=== PATIENT | female | born 1955 | race Caucasian/White ===

== ENCOUNTER 2017-07-20 10:58 | Inpatient (IN) | payer BC, OTHER ==
[2017-07-20] MEDS ORDERED: ASPIRIN 81 MG CHEWABLE TABLETS PO ONE (11:16)
[2017-07-20] MEDS ORDERED: METOPROLOL TARTRATE 5 MG/5 ML VIAL IVPUSH ONE (11:18)
--- NOTE | 2017-07-20 11:18 | PDOC ---
History of Present Illness - History of Present Illness Initial Comments: 07/20/17 11:37 The patient is a 61 year old female, with a significant past medical history of , who presents to the emergency department with chest pain since this morning. Patient reports having a cold and dry cough. She says she took mucinex but it did not help her symptoms. Saw her PCP, Dr. Misbah Domínguez, and he referred her to the ED s/p abnormal EKG. Patient states this is the first time going to a doctor in a while. She denies recent fevers, chills, headache or dizziness. She denies recent nausea, vomit, diarrhea or constipation. She denies recent dysuria, frequency, urgency or hematuria. She denies recent shortness of breath. Allergies: NKA Past surgical history: None reported. Social history: Nonsmoker. Denies EtOH use and recreational drug use. FMHx: Mother at 85 from heart failure. Father from stroke. Primary Care Physician: Adam Domínguez <Nikki Rouse - Last Filed: 07/20/17 13:33> <Lucrecia Washburn - Last Filed: 07/20/17 13:41> - General Chief Complaint: Chest Pain Stated Complaint: ABNORMAL EKG Time Seen by Provider: 07/20/17 11:07 Past History <Nikki Rouse - Last Filed: 07/20/17 13:33> - Past Medical History Psychiatric Problems: Yes (ANXIETY) - Suicide/Smoking/Psychosocial Hx Smoking History: Never smoked Information on smoking cessation initiated: No Hx Alcohol Use: No Drug/Substance Use Hx: No Substance Use Type: None <Lucrecia Washburn - Last Filed: 07/20/17 13:41> - Past Medical History Allergies/Adverse Reactions: Allergies Allergy/AdvReac Type Severity Reaction Status Date / Time No Known Allergies Allergy Verified 07/20/17 11:04 Review of Systems - Review of Systems Comments:: 07/20/17 11:37 GENERAL/CONSTITUTIONAL: + malaise +diaphoresis. +dry cough. No fever or chills. HEAD, EYES, EARS, NOSE AND THROAT: No change in vision. No ear pain or discharge. No sore throat. CARDIOVASCULAR: +chest pain. No shortness of breath. RESPIRATORY: No cough, wheezing, or hemoptysis. GASTROINTESTINAL: No nausea, vomiting, diarrhea or constipation. GENITOURINARY: No dysuria, frequency, or change in urination. MUSCULOSKELETAL: No joint or muscle swelling or pain. No neck or back pain. SKIN: No rash NEUROLOGIC: No headache, vertigo, loss of consciousness, or change in strength/ sensation. ENDOCRINE: No increased thirst. No abnormal weight change. HEMATOLOGIC/LYMPHATIC: No anemia, easy bleeding, or history of blood clots. ALLERGIC/IMMUNOLOGIC: No hives or skin allergy. <Nikki Rouse - Last Filed: 07/20/17 13:33> *Physical Exam - Vital Signs Last Vital Signs Temp Pulse Resp BP Pulse Ox 97.6 F 125 H 22 146/105 94 L 07/20/17 11:07/20/17 11:07/20/17 11:07/20/17 11:07/20/17 11:01 - Physical Exam Comments: 07/20/17 11:37 GENERAL: Awake, alert, and fully oriented, in no acute distress HEAD: No signs of trauma EYES: PERRLA, EOMI, sclera anicteric, conjunctiva clear ENT: Auricles normal inspection, hearing grossly normal, nares patent, oropharynx clear without exudates. Moist mucosa NECK: Normal ROM, supple, no lymphadenopathy, JVD, or masses LUNGS: +Crackles at bases of lungs. Lungs otherwise clear. Breath sounds equal, clear to auscultation bilaterally. No wheezes. HEART: +Rate irregularly irregular. No murmurs, rubs or gallops ABDOMEN: Soft, nontender, normoactive bowel sounds. No guarding, no rebound. No masses EXTREMITIES: Normal range of motion, no edema. No clubbing or cyanosis. No cords, erythema, or tenderness NEUROLOGICAL: Cranial nerves II through XII grossly intact. Normal speech, normal gait SKIN: Warm, Dry, normal turgor, no rashes or lesions noted. <Nikki Rouse - Last Filed: 07/20/17 13:33> - Vital Signs Last Vital Signs Temp Pulse Resp BP Pulse Ox 97.6 F 125 H 22 146/105 94 L 07/20/17 11:01 07/20/17 11:07/20/17 11:01 07/20/17 11:01 07/20/17 11:01 <Lucrecia Washburn - Last Filed: 07/20/17 13:41> ED Treatment Course - LABORATORY CBC & Chemistry Diagram: 07/20/17 11:30 07/20/17 11:30 - Additional Consults Time Called: 01:08 (called Dr. Aiken x2. Dr. Domínguez prefers Dr. Calderón for consult. Called Dr. Calderón @ 1:09 Called 2nd time @1:20) Consult/PCP: Cardiology - Dr. Calderón <Nikki Rouse - Last Filed: 07/20/17 13:33> - LABORATORY CBC & Chemistry Diagram: 07/20/17 11:30 07/20/17 11:30 <Lucrecia Washburn - Last Filed: 07/20/17 13:41> Medical Decision Making - Medical Decision Making 07/20/17 12:23 Pt is extremely diaphoretic; nasal cannula pt has O2sat 92%; on NRB she is 93% O2sat. Pt placed on BiPAP, as she has bilateral pneumonia on portable CXR. Pt has a WBC of 11. EKG is afib and LBBB 07/20/17 12:35 First troponin within normal limits. CPK still pending. Pt feeling better with BIPAP Zithromax and zosyn ordered for the bilateral pneumonia. 07/20/17 12:49 07/20/17 12:48 CPK 166; pt vastly improved with BiPAP. Awaiting cardiology division supervisor to accept pt to telemetry 07/20/17 13:38 Dr Domínguez is requesting Dr. Lepe for cardiology 07/20/17 13:41 Dr Lepe is aware of the patient. Heparin drip will be started <Lucrecia Washburn - Last Filed: 07/20/17 13:41> *DC/Admit/Observation/Transfer - Attestations Scribe Attestion: 07/20/17 11:38 Documentation prepared by Nikki Rouse, acting as medical record consultant for Lucrecia Washburn MD. <Nikki Rouse - Last Filed: 07/20/17 13:33> - Discharge Dispostion Admit: Yes <Lucrecia Washburn - Last Filed: 07/20/17 13:41> Diagnosis at time of Disposition: Atrial fibrillation, Bilateral pneumonia - Discharge Dispostion Condition at time of disposition: Guarded
[2017-07-20] MEDS ORDERED: dilTIAZem HCL 50 MG/10 ML - 10 ML VIAL IVPUSH ONE (11:27)
[2017-07-20] MEDS ORDERED: SODIUM CHLORIDE 0.9% 500 ML INFUS.BAG IV ONE (11:27)
[2017-07-20] MEDS ORDERED: dilTIAZem HCL 125 MG/25 ML - 25 ML VIAL ONE (11:35)
[2017-07-20] MEDS ORDERED: ASPIRIN 81 MG CHEWABLE TABLETS ONE (11:35)
[2017-07-20] MEDS ORDERED: LORazepam 1 MG TABLET PO ONE (11:40)
[2017-07-20] MEDS ORDERED: LORazepam 0.5 MG TABLET ONE (11:44)
[2017-07-20 11:45] LABS: BASOPHIL 0.7 % (0-2.0); EOSINOPHIL 0.4 % (0-4.5); MCH 30.4 pg (25.7-33.7); MEAN PLT VOLUME 9.5 fl (7.5-11.1); NEUTROPHILS 79.9 % (42.8-82.8); PLATELET COUNT 335 K/MM3 (134-434)
[2017-07-20 11:58] LABS: INR 1.18 (0.82-1.09)
[2017-07-20 12:00] LABS: ALBUMIN 3.6 g/dl (3.4-5.0); ANION GAP 15 (8-16); BILIRUBIN,TOTAL 0.8 mg/dL (0.2-1.0); CALCIUM 9.1 mg/dL (8.5-10.1); CO2 16 mmol/L (21-32); CREATININE 0.7 mg/dL (0.55-1.02); GLUCOSE,RANDOM 181 mg/dL (74-106); SGOT/AST 25 U/L (15-37); SGPT/ALT 33 U/L (12-78); TOT PROT 7.1 g/dl (6.4-8.2)
[2017-07-20 12:02] LABS: ALK PHOS 122 U/L (45-117); CPK 176 IU/L (26-192); TROPONIN I 0.05 ng/ml (0.00-0.05)
[2017-07-20] MEDS ORDERED: PIPERACILLIN/TAZOB 3.375 GM 3.375 GM in DEXTROSE 5%-WATER - 50 ML IVPB ONE (12:13)
[2017-07-20] MEDS ORDERED: AZITHROMYCIN IVPB 250 ML IVPB ONE (12:18)
[2017-07-20] MEDS ORDERED: AZITHROMYCIN IVPB 500 MG in DEXTROSE 5%-WATER - 250 ML IVPB ONE (12:18)
[2017-07-20] MEDS ORDERED: dilTIAZem HCL 60 MG TABLET (FP) PO ONE (12:39)
--- NOTE | 2017-07-20 13:20 | HP ---
Admitting History and Physical - Admission Chief Complaint: chest tightness. came in c/o sob at rest cough x 1 wk History of Present Illness: pt never seen docters in yrs History Source: Patient, Family Member Limitations to Obtaining History: No Limitations - Past Surgical History Past Surgical History: Yes: None - Smoking History Smoking history: Never smoked Have you smoked in the past 12 months: No - Alcohol/Substance Use Hx Alcohol Use: No - Social History Usual Living Arrangement: Yes: Alone ADL: Independent History of Recent Travel: No Home Medications - Allergies Allergies/Adverse Reactions: Allergies Allergy/AdvReac Type Severity Reaction Status Date / Time No Known Allergies Allergy Verified 07/20/17 11:04 Family Disease History - Family Disease History Family History: Unremarkable Review of Systems - Review of Systems Constitutional: reports: Other (sob coughf) Eyes: reports: No Symptoms HENT: reports: No Symptoms Neck: reports: No Symptoms Cardiovascular: reports: Chest Pain, Shortness of Breath Respiratory: reports: SOB Gastrointestinal: reports: No Symptoms Genitourinary: reports: No Symptoms Breasts: reports: No Symptoms Reported Musculoskeletal: reports: No Symptoms Integumentary: reports: No Symptoms Neurological: reports: No Symptoms Endocrine: reports: No Symptoms Hematology/Lymphatic: reports: No Symptoms Psychiatric: reports: No Symptoms, Anxiety Physical Examination Vital Signs: Vital Signs Temperature 97.6 F 07/20/17 11:01 Pulse Rate 98 H 07/20/17 12:35 Respiratory Rate 28 H 07/20/17 12:35 Blood Pressure 144/98 07/20/17 12:35 O2 Sat by Pulse Oximetry (%) 99 07/20/17 12:35 Constitutional: Yes: Well Nourished Eyes: Yes: WNL HENT: Yes: WNL Neck: Yes: WNL Cardiovascular: Yes: Pulse Irregular Respiratory: Yes: Diminished, Rhonchi, SOB Gastrointestinal: Yes: WNL ...Rectal Exam: Yes: Deferred Renal/: Yes: WNL Breast(s): Yes: WNL Musculoskeletal: Yes: WNL Extremities: Yes: WNL Edema: No Integumentary: Yes: WNL Neurological: Yes: WNL ...Motor Strength: WNL Psychiatric: Yes: Agitated Labs: CBC, BMP 07/20/17 11:30 07/20/17 11:30 Problem List - Problems (1) Anxiety Code(s): F41.9 - ANXIETY DISORDER, UNSPECIFIED Assessment/Plan card consult id consult luvonox bid o 2 jalen q 8 x 2 echo in am aic in am tsh now 1 liter fl restrict for na 130 rocefin 1 gm iv daily zithromax iv daily telemetry f/u lab in am and cultures cardiazam po 5 mg daily
[2017-07-20] MEDS ORDERED: dilTIAZem HCL 30 MG TABLET (FP) PO ONE (13:36)
[2017-07-20] MEDS ORDERED: AZITHROMYCIN IVPB 1,000 MG in DEXTROSE 5%-WATER - 250 ML IVPB ONE (13:36)
[2017-07-20] MEDS ORDERED: HEPARIN NA (PORCINE) 5,000 UNITS/ML 1ML VIAL IVPUSH PRN (13:39)
[2017-07-20] MEDS ORDERED: HEPARIN NA (PORCINE) 5,000 UNITS/ML 1ML VIAL IVPUSH ONE (13:39)
[2017-07-20] MEDS ORDERED: HEPARIN INFUSION - 500 ML IVPB SCH (13:45)
[2017-07-20] MEDS ORDERED: HEPARIN INFUSION - 500 ML IVPB ONE (13:50)
[2017-07-20] MEDS ORDERED: HEPARIN NA (PORCINE) 5,000 UNITS/ML 1ML VIAL ONE (13:50)
--- NOTE | 2017-07-20 14:08 | CON.PULM ---
Consult Consult Specialty:: PULMONARY Referred by:: MONY Reason for Consultation:: B/L PNEUMONIA - History of Present Illness Chief Complaint: COUGH/SOB/FEVER History of Present Illness: The patient is a 61 year old female,never smoker, without a significant PMH , who presents to ER via Dr. Adam Domínguez's office where she was complaining of sob,cough,fever,chills and palps . Patient reports having a cold and dry cough. She says she took mucinex but it did not help her symptoms. while at MD's office she was found to be in rapid atrial fibrillation and to have bilateral infiltrates. She denies recent fevers, chills, headache or dizziness. She denies recent nausea, vomit, diarrhea or constipation. She denies recent dysuria, frequency, urgency or hematuria. 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 She does not take any medication and has not seen an MD in years. She did not get a flu vaccine . 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 Cardio/Vascular: Yes: AFIB Pulmonary: Yes: Pneumonia Gastrointestinal: No: Ascites Hepatobiliary: No: Cirrhosis Renal/: No: Renal Failure Reproductive: Yes: Postmenopausal ...: No Heme/Onc: No: Anemia Psych: No: Addictions - Past Surgical History Past Surgical History: Yes: None - Alcohol/Substance Use Hx Alcohol Use: No History of Substance Use: reports: None - Smoking History Smoking history: Never smoked Have you smoked in the past 12 months: No - Social History ADL: Independent History of Recent Travel: No Home Medications - Allergies Allergies/Adverse Reactions: Allergies Allergy/AdvReac Type Severity Reaction Status Date / Time No Known Allergies Allergy Verified 07/20/17 11:04 Family Disease History - Family Disease History Family History: Unremarkable Review of Systems - Review of Systems Constitutional: reports: Chills, Fever, Lethargy, Loss of Appetite HENT: denies: Difficult Swallowing Neck: denies: Decreased ROM Cardiovascular: reports: Chest Pain, Palpitations, Shortness of Breath Respiratory: reports: Cough, Exercise Intolerance, SOB, SOB on Exertion, Wheezing. denies: Hemoptysis Gastrointestinal: reports: No Symptoms Genitourinary: reports: No Symptoms Breasts: reports: No Symptoms Reported Physical Exam Vital Sings: Vital Signs Temperature 97.6 F 07/20/17 11:01 Pulse Rate 98 H 07/20/17 12:35 Respiratory Rate 28 H 07/20/17 12:35 Blood Pressure 144/98 07/20/17 12:35 O2 Sat by Pulse Oximetry (%) 99 07/20/17 12:35 Constitutional: Yes: Moderate Distress, Pallor, Thin Eyes: Yes: Conjunctiva Clear HENT: Yes: Atraumatic Neck: Yes: Supple Cardiovascular: Yes: Pulse Irregular, S1, S2 Respiratory: Yes: Rales (bilaterally), Rhonchi Gastrointestinal: Yes: Soft Edema: No Neurological: Yes: Alert Labs: CBC, BMP 07/20/17 11:30 07/20/17 11:30 rest reviewed Imaging - Results Chest X-ray: Report Reviewed, Image Reviewed EKG: Report Reviewed, Image Reviewed Problem List - Problems (1) Atrial fibrillation Code(s): I48.91 - UNSPECIFIED ATRIAL FIBRILLATION (2) Bilateral pneumonia Code(s): J18.9 - PNEUMONIA, UNSPECIFIED ORGANISM (3) Respiratory failure Code(s): J96.90 - RESPIRATORY FAILURE, UNSP, UNSP W HYPOXIA OR HYPERCAPNIA Assessment/Plan ADMIT TO ICU NIPPV TO KEEP SPO2 GREATER THAN 90% PANCULTURE/BLOOD/URINE/SPUTUM/URINARY ANTIGENS/NASAL SWAB FOR INFLUENZA COVER FOR COMMUNITY RESPIRATORY PATHOGENS INCLUDING INFLUENZA CHECK ABG RATE CONTROL/IV FLUIDS/ANTIPYRETICS CARDIO EVAL PER PMD HAVE SPOKEN TO DR NOBLE/PMD AND FAMILY Kiley RUBIO MD
[2017-07-20 14:15] LABS: ARTERIAL BLD GAS O2 SATURATION 97.6 % (90-98.9); ARTERIAL BLOOD GAS BASE EXCESS -9.1 meq/l (-2-2)
[2017-07-20 14:16] LABS: ALLENS TEST POSITIVE; ART PUNCT SITE LEFT RADIAL; ARTERIAL BLOOD GAS HCO3 16.1 meq/L (22-26); LPM/O2% 100%; MECH. VENT. BIPAP; PT. ON O2? YES; TYPE OF O2 BIPAP; VENT RATE 14
[2017-07-20 14:16] LABS: THYROID STIMULATING HORMONE 1.46 uIU/ml (0.358-3.74)
[2017-07-20] MEDS ORDERED: OSELTAMIVIR PHOSPHATE 75 MG CAPSULE PO ONE (14:30)
[2017-07-20] MEDS ORDERED: CEFTRIAXONE 1 G/50 ML PREMIX 50 ML IVPB SCH (14:30)
[2017-07-20] MEDS ORDERED: FUROSEMIDE 40 MG/4 ML INJECTABLE VIAL IVPUSH ONE ×2 (15:36→23:00)
[2017-07-20 15:54] VITALS: BMI 24.3
--- NOTE | 2017-07-20 16:31 | CONSULT ---
Consultation: CONSULT REQUEST: INFECTIOUS DISEASE HISTORY OF PRESENT ILLNESS: Ms. Machado is a 61yo F with no PMHx on no home medications who presented to the ER from Dr. Domínguez's office with complaints of SOB and cough. Pt states that about 2 weeks ago the patient started feeling cold type symptoms such as runny nose, watery eyes, sneezing. 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 At the same time the patient was complaining of nonproductive cough and gradual onset SOB. She had been experiencing intermittent fevers/chills at the time. She took mucinex which did not relieve her symptoms. She went to Dr. Domínguez's office where she was found to be in rapid Afib, and was transferred to the ER. In the ER the patient was afebrile, tachycardic (120s) in Afib, with O2 in the low 90s on NC. She was switched to non-rebreather and later placed on BiPAP. She was given Cardizem, Lopressor, and Heparin drip. CXR showed bilateral congestion with possible B/L infiltrates. She was given dose of Zithromax 500mg IVPB + Tamiflu 75mg x1. Flu swab was negative. In the ICU, she was hypothermic (97.2), still tachycaric, now in sinus rhythm. She was given Lasix 40mg IV x1 for the pulmonary congestion and is receiving Zosyn 3.375gm x1 Currently, the patient does not feel well. She endorses SOB, dry cough, but denies nausea/vomiting/diarrhea/frequency/urgency. She denies orthopnea or PND. Home Medication List Medication Instructions Recorded Confirmed Type NK [No Known Home Medication] 07/20/17 07/20/17 History REVIEW OF SYSTEMS: CONSTITUTIONAL: Absent: fever, chills, diaphoresis, generalized weakness, malaise, loss of appetite, weight change HEENT: Absent: rhinorrhea, nasal congestion, throat pain, throat swelling, difficulty swallowing, mouth swelling, ear pain, eye pain, visual changes CARDIOVASCULAR: Absent: chest pain, syncope, palpitations, irregular heart rate, lightheadedness , peripheral edema RESPIRATORY: Absent: cough, shortness of breath, dyspnea with exertion, orthopnea, wheezing, stridor, hemoptysis Present: cough, SOB, dyspnea with exertion GASTROINTESTINAL: Absent: abdominal pain, abdominal distension, nausea, vomiting, diarrhea, constipation, melena, hematochezia GENITOURINARY: Absent: dysuria, frequency, urgency, hesitancy, hematuria, flank pain, genital pain MUSCULOSKELETAL: Absent: myalgia, arthralgia, joint swelling, back pain, neck pain SKIN: Absent: rash, itching, pallor HEMATOLOGIC/IMMUNOLOGIC: Absent: easy bleeding, easy bruising, lymphadenopathy, frequent infections ENDOCRINE: Absent: unexplained weight gain, unexplained weight loss, heat intolerance, cold intolerance NEUROLOGIC: Absent: headache, focal weakness or paresthesias, dizziness, unsteady gait, seizure, mental status changes, bladder or bowel incontinence PSYCHIATRIC: Absent: anxiety, depression, suicidal or homicidal ideation, hallucinations. PHYSICAL EXAMINATION Vital Signs Temperature 97.2 F L 07/20/17 15:15 Pulse Rate 92 H 07/20/17 15:15 Respiratory Rate 28 H 07/20/17 15:15 Blood Pressure 134/88 07/20/17 15:15 O2 Sat by Pulse Oximetry (%) 99 07/20/17 15:15 GEN: AAOx3, on BiPAP, using accessory muscles HEENT: PERRLA, EOMi, no visible JVD CV: S1, S2, tachycardic rate, regular rhythm LUNG: Anterior breath sounds are coarse bilaterally ABD: Soft, NT, ND MSK: Cool, clammy extremities without pitting edema in extremities Microbiology 07/20/17 15:05 Nasopharyngeal Swab Influenza Types A,B Antigen (YOHANA) - Final --> NEGATIVE 07/20/17 15:05 Nasopharyngeal Swab - Final Selected Entries 07/20/17 15:15 Temperature 97.2 F L Pulse Rate [ 92 H Right] Respiratory 24 Rate Laboratory Tests 07/20/17 07/20/17 07/20/17 11:30 11:30 14:05 WBC 11.0 H Neutrophils % 79.9 ABG pH 7.30 L ABG pCO2 at Pt Temp 34.1 L Creatinine 0.7 Active Medications Generic Name Dose Route Start Last Admin Trade Name Freq PRN Reason Stop Dose Admin Heparin Sodium (Porcine) 1,000 unit 07/20/17 13:39 Heparin - IVPUSH PRN PRN Heparin Heparin Sodium/Dextrose 500 mls @ 20 mls/hr 07/20/17 13:45 07/20/17 14:13 Heparin Infusion - IVPB 20 mls/hr TITR MISAEL Administration Protocol 1,000 UNITS/HR Azithromycin 500 mg/ Dextrose 250 mls @ 250 mls/hr 07/21/17 10:00 IVPB DAILY MISAEL Piperacillin Sod/Tazobactam 50 mls @ 100 mls/hr 07/20/17 18:00 Sod 3.375 gm/ Dextrose IVPB Q8H-IV MISAEL Protocol Vancomycin HCl 1,000 mg/ 250 mls @ 200 mls/hr 07/20/17 18:00 Dextrose IVPB Q12H MISAEL Oseltamivir Phosphate 75 mg 07/20/17 22:00 Tamiflu - PO 07/25/17 21:59 BID MISAEL CXR: Bilateral pleural effusion with bilateral opacifiations, possible infiltrate. Echo: 21% EF, reduced LVSF, severe hypokinesis ASSESSMENT/PLAN: Pt is a 61yo F with no PMHx on no home medications who presented to the ER from Dr. Domínguez's office with complaints of SOB and cough. # Acute CHF Exacerbation - 2/2 viral etiology vs B/L PNA vs mixed - Echo reveals severe hypokinesis and reduced LVSF (EF 21.8%) - Possible viral predisposition to CHF exacerbation, but will cover for PNA due to clinical state - Continue Zosyn 3.375gm Q6H + Vanc 1g BID + Azithromycin 250mg QD + Tamiflu 75mg BID - Continue diuresis - F/u BCx, UCx, Urine antigens - F/u CXR in AM - F/u HIV screen, verbal consent for HIV test given - Discussed w/ Cardiology Discussed w/ Dr Forrest Garner MD - PGY1 Infectious Disease Critical care time 35min Visit type - Emergency Visit Emergency Visit: No - New Patient This patient is new to me today: Yes Date on this admission: 07/20/17 - Critical Care Critical Care patient: Yes Total Critical Care Time (in minutes): 35 Critical Care Statement: The care of this patient involved high complexity decision making to prevent further life threatening deterioration of the patient 's condition and/or to evaluate & treat vital organ system(s) failure or risk of failure.
[2017-07-20] MEDS: PIPERACILLIN/TAZOB 3.375 GM 50 ML IVPB SCH (16:45)
--- NOTE | 2017-07-20 17:19 | PN ---
Physical Exam: SUBJECTIVE: Patient seen and examined by me this AM OBJECTIVE: Vital Signs Intake & Output 07/17/17 07/18/17 07/19/17 07/20/17 23:59 23:59 23:59 23:59 Weight 72.575 kg Period Temp Pulse Resp BP Sys/Olivarez Pulse Ox Last 24 Hr 97.2 F 92-118 24-35 134-151/88-110 92-99 GENERAL: The patient is awake, alert, and fully oriented, in no acute distress. HEAD: Normal with no signs of trauma. EYES: PERRL, extraocular movements intact, sclera anicteric, conjunctiva clear. No ptosis. ENT: Ears normal, nares patent, oropharynx clear without exudates, moist mucous membranes. NECK: Trachea midline, full range of motion, supple. LUNGS: Breath sounds equal, clear to auscultation bilaterally, no wheezes, no crackles, no accessory muscle use. HEART: Regular rate and rhythm, S1, S2 without murmur, rub or gallop. ABDOMEN: Soft, nontender, nondistended, normoactive bowel sounds, no guarding, no rebound, no hepatosplenomegaly, no masses. EXTREMITIES: 2+ pulses, warm, well-perfused, no edema. NEUROLOGICAL: Cranial nerves II through XII grossly intact. Normal speech, gait not observed. PSYCH: Normal mood, normal affect. SKIN: Warm, dry, normal turgor, no rashes or lesions noted Laboratory Results - last 24 hr CBC, BMP 07/20/17 11:30 07/20/17 11:30 07/20/17 07/20/17 07/20/17 11:30 11:30 11:30 WBC 11.0 H RBC 4.80 Hgb 14.6 Hct 44.2 MCV 92.0 MCH 30.4 MCHC 33.0 RDW 14.0 Plt Count 335 MPV 9.5 Neutrophils % 79.9 Lymphocytes % 13.9 Monocytes % 5.1 Eosinophils % 0.4 Basophils % 0.7 PT with INR 13.00 H INR 1.18 H PTT (Actin FS) 30.4 Puncture Site ABG pH ABG pCO2 at Pt Temp ABG pO2 at Pt Temp ABG HCO3 ABG O2 Sat (Measured) ABG O2 Content ABG Base Excess Terry Test O2 Delivery Device Oxygen Flow Rate Vent Mode Vent Rate Mechanical Rate PEEP Pressure Support Vent Sodium Potassium Chloride Carbon Dioxide Anion Gap BUN Creatinine Creat Clearance w eGFR Random Glucose Hemoglobin A1c % Calcium Total Bilirubin AST ALT Alkaline Phosphatase Creatine Kinase Creatine Kinase Index CK-MB (CK-2) Troponin I Total Protein Albumin TSH 07/20/17 07/20/17 07/20/17 11:30 11:30 14:05 WBC RBC Hgb Hct MCV MCH MCHC RDW Plt Count MPV Neutrophils % Lymphocytes % Monocytes % Eosinophils % Basophils % PT with INR INR PTT (Actin FS) Puncture Site Left radial ABG pH 7.30 L ABG pCO2 at Pt Temp 34.1 L ABG pO2 at Pt Temp 129.0 H ABG HCO3 16.1 L ABG O2 Sat (Measured) 97.6 ABG O2 Content 19.2 ABG Base Excess -9.1 L Terry Test Positive O2 Delivery Device Bipap Oxygen Flow Rate 100% Vent Mode S/t Vent Rate 14 Mechanical Rate Bipap PEEP 0.0 Pressure Support Vent 12/5 Sodium 130 L Potassium 4.5 Chloride 99 Carbon Dioxide 16 L Anion Gap 15 BUN 9 Creatinine 0.7 Creat Clearance w eGFR > 60 Random Glucose 181 H Hemoglobin A1c % 5.1 Calcium 9.1 Total Bilirubin 0.8 AST 25 ALT 33 Alkaline Phosphatase 122 H Creatine Kinase 176 Creatine Kinase Index 3.2 CK-MB (CK-2) 5.650 H Troponin I 0.05 Total Protein 7.1 Albumin 3.6 TSH 1.46 Active Medications Generic Name Dose Route Start Last Admin Trade Name Freq PRN Reason Stop Dose Admin Heparin Sodium (Porcine) 1,000 unit 07/20/17 13:39 Heparin - IVPUSH PRN PRN Heparin Heparin Sodium/Dextrose 500 mls @ 20 mls/hr 07/20/17 13:45 07/20/17 14:13 Heparin Infusion - IVPB 20 mls/hr TITR MISAEL Administration Protocol 1,000 UNITS/HR Micro: Blood, Urine, FABRICATION MANAGER cultures pending Imaging: CXR (07/20) - Echo (07/20)- ASSESSMENT/PLAN:
[2017-07-20 17:30] LABS: TROPONIN I 0.06 ng/ml (0.00-0.05)
--- NOTE | 2017-07-20 17:44 | CON.CARD ---
Consult Consult Specialty:: Cardiology Referred by:: aurelia Domínguez Reason for Consultation:: CHF - History of Present Illness Chief Complaint: SOB History of Present Illness: 61 year old female with no pmhx but did not see doctors who went to Dr. Domínguez' s office for few days of sob, cough, and subjective fevers which have been worsening to point sob with minimal exertion. No chest pain. Report as per chart was in afib with RVR and b/l infiltrates in pmd's office. 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 Cardio/Vascular: Yes: AFIB Pulmonary: Yes: Pneumonia Gastrointestinal: No: Ascites Hepatobiliary: No: Cirrhosis Renal/: No: Renal Failure ...: No Psych: No: Addictions - Past Surgical History Past Surgical History: Yes: None - Alcohol/Substance Use Hx Alcohol Use: No History of Substance Use: reports: None - Smoking History Smoking history: Never smoked Have you smoked in the past 12 months: No - Social History ADL: Independent History of Recent Travel: No Home Medications - Allergies Allergies/Adverse Reactions: Allergies Allergy/AdvReac Type Severity Reaction Status Date / Time No Known Allergies Allergy Verified 07/20/17 11:04 - Home Medications Home Medications: Ambulatory Orders NK [No Known Home Medication] 07/20/17 Vital Signs: Vital Signs Temperature 97.2 F L 07/20/17 15:15 Pulse Rate 92 H 07/20/17 15:15 Respiratory Rate 28 H 07/20/17 15:15 Blood Pressure 134/88 07/20/17 15:15 O2 Sat by Pulse Oximetry (%) 99 07/20/17 15:15 Constitutional: Yes: Moderate Distress Neck: Yes: Supple Respiratory: Yes: Rales Gastrointestinal: Yes: Normal Bowel Sounds, Soft Cardiovascular: Yes: Tachycardia JVD: Yes Carotid Bruit: No Heart Sounds: Yes: S1, S2, S3 Murmur: No: Systolic Murmur Extremities: Yes: Cool Edema: No - Other Data Labs, Other Data: CBC, BMP 07/20/17 11:30 07/20/17 11:30 INR, PTT INR 1.18 (0.82-1.09) H 07/20/17 11:30 Troponin, BNP 10/11/17 10/11/17 11:30 16:40 Troponin I 0.05 0.06 H B-Natriuretic Peptide 29640.06 H Troponin, BNP 07/20/17 07/20/17 11:30 16:40 Troponin I 0.05 0.06 H B-Natriuretic Peptide 62063.06 H Imaging - Results X-ray: Report Reviewed EKG: Image Reviewed Assessment/Plan 61 year old female with no pmhx but did not see doctors who went to Dr. Domínguez' s office for few days of sob, cough, and subjective fevers which have been worsening to point sob with minimal exertion. No chest pain. Report as per chart was in afib with RVR and b/l infiltrates in pmd's office. 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 Unclear etiology. Possibly viral or infectious. LV is dilated already so possibly acute on an underlying chronic condition. EKG here sinus with LBBB and pvc's. No afib in ICU. Diurese patient furosemide 60mg IV q12 give another dose tonight of diuretic. Monitor I/O's and lytes, Keep close observation of electrolytes given pvc's and ensure K over 4 and Mg over 2. If becomes hypotensive would consider ionotropic support such as dobutamine. -On lovenox for AC for report of afib but would get records from pmd's office to see if patient really has afib as here not in afib. -Would f/u with ID for any recommendations regarding possible viral etiology or broad abx for coverage for now. F/u cultures. -Bipap as needed for now. -Please contact for any clinical changes.
[2017-07-20] MEDS ORDERED: PT OWN MED DRAWER 7, Y5N ONE ×2 (17:48→20:47)
--- NOTE | 2017-07-20 17:57 | CONSULT ---
Consultation: REQUESTING PROVIDER: CONSULT REQUEST: We have been asked to medically evaluate this patient for suspected Acute on Chronic CHF exacerbation. HISTORY OF PRESENT ILLNESS: 61 yo F w/ no significant PMH, who presented to ED from PCP Dr. Domínguez's office with progressive SOB, dyspnea on exertion of one week w/ new onset aFib in the setting of suspected URI. At baseline, pt is functional in all ADLs, w/ no prior hx of cardiovascular conditions and takes no home meds. 1-2 weeks prior to admission, pt endorses URI symptoms, w/ throat pain progressing to chest congestion, rhinorrhea and subjective fevers/chills at night. Pt works as teacher w/ multiple sick contacts. Since the onset of these symptoms, pt endorses worsening SOB, dyspnea on minimal exertion and two pillow orthopnea at home, most notably over the past week. She presented to her PCP, Dr. Domínguez, this AM and was found to have new onset aFib and bilateral vascular congestion on CXR. She was sent directly to ED. Pt denies any THAKKAR/lightheadness, palpitations, PND, peripheral edema, abdominal pain, N/V, rashes, constipation/ diarrhea or dysuria. She endorse mild chest pain/discomfort on maximal inspiration, which she attributes to her cold. In ED, pt was afebrile, satting in low 90s on NC, w/ tachycardia to 120s and unconfirmed afib. Pt was given diltiazem 60+30mg IV, lopressor 5mg and was started on a heparin gtt for suspected. Pt was placed on BiPap, satting in high 90s. Given zithromax, rocephin for suspected CAP. CXR w/ BL vascular congestion vs. infiltrative process. Since transfer to ICU, pt received one dose Lasix 40mg , started on zosyn, stable in NSR w/ multiple PVCs on tele. PMH: New onset Paroxysmal Afib, suspected PNA. Never hospitalized, intubated emergently. PSH: None Fam Hx: Non-contributory Social Hx: Lives at home. Works as teacher. No alcohol use, drug use. Never smoked. Allergies: NKDA REVIEW OF SYSTEMS: CONSTITUTIONAL: fever, chills Absent: diaphoresis, generalized weakness, malaise, loss of appetite, weight change HEENT: rhinorrhea, nasal congestion, throat pain Absent: throat swelling, difficulty swallowing, ear pain, eye pain, visual changes CARDIOVASCULAR: chest pain, irregular heart rate Absent: syncope, lightheadedness, peripheral edema RESPIRATORY: cough, shortness of breath, dyspnea with exertion, orthopnea Absent: wheezing, stridor, hemoptysis GASTROINTESTINAL: Absent: abdominal pain, abdominal distension, nausea, vomiting, diarrhea, constipation, melena, hematochezia GENITOURINARY: Absent: dysuria, frequency, urgency, hesitancy, hematuria, flank pain SKIN: Absent: rash, itching, pallor NEUROLOGIC: Absent: headache, focal weakness or paresthesias, dizziness, seizure, mental status changes, bladder or bowel incontinence PHYSICAL EXAMINATION Vital Signs - 24 hr 07/20/17 07/20/17 07/20/17 11:30 12:20 12:25 Temperature Pulse Rate 112 H 113 H Pulse Rate [ 118 H Right] Respiratory 35 H Rate Blood Pressure Blood Pressure 149/110 [Right Arm] O2 Sat by Pulse 95 92 L 97 Oximetry (%) 07/20/17 07/20/17 07/20/17 12:30 12:35 13:35 Temperature Pulse Rate 115 H Pulse Rate [ 98 H 101 H Right] Respiratory 28 H 26 H Rate Blood Pressure Blood Pressure 144/98 139/97 [Right Arm] O2 Sat by Pulse 99 98 Oximetry (%) 07/20/17 07/20/17 07/20/17 14:11 14:15 15:15 Temperature 97.2 F L Pulse Rate 101 H Pulse Rate [ 93 H 92 H Right] Respiratory 24 24 Rate Blood Pressure 151/89 Blood Pressure 137/89 134/88 [Right Arm] O2 Sat by Pulse 95 99 Oximetry (%) GENERAL: The patient is awake, alert, and fully oriented, in no acute distress. HEAD: Normal with no signs of trauma. EYES: PERRL, extraocular movements intact, sclera anicteric, conjunctiva clear. No ptosis. ENT: Ears normal, nares patent, oropharynx clear without exudates NECK: Trachea midline, supple. No bruit appreciates. Trace expiratory wheeze noted. No lymphadenopathy. LUNGS: Coarse breath sounds w/ BL diffuse rhonchi. Using accessory muscles. HEART: Difficult to appreciate given prominent breath sounds. Tachycardic, S1, S2, possible S3. ABDOMEN: Soft, nontender, nondistended, normoactive bowel sounds, no guarding, no rebound, no masses. EXTREMITIES: 1+ pulses, cool to touch in upper extremities. Delayed cap refill. 1+ pulses, cool to touch BL in LEs. Trace non-pitting edema noted bilaterally. Negative teofilo's. NEUROLOGICAL: Cranial nerves II through XII grossly intact. Normal speech, gait not observed. Laboratory Results - last 24 hr CBC, BMP 07/20/17 11:30 07/20/17 11:30 07/20/17 07/20/17 07/20/17 11:30 11:30 11:30 WBC 11.0 H RBC 4.80 Hgb 14.6 Hct 44.2 MCV 92.0 MCH 30.4 MCHC 33.0 RDW 14.0 Plt Count 335 MPV 9.5 Neutrophils % 79.9 Lymphocytes % 13.9 Monocytes % 5.1 Eosinophils % 0.4 Basophils % 0.7 PT with INR 13.00 H INR 1.18 H PTT (Actin FS) 30.4 Puncture Site ABG pH ABG pCO2 at Pt Temp ABG pO2 at Pt Temp ABG HCO3 ABG O2 Sat (Measured) ABG O2 Content ABG Base Excess Terry Test O2 Delivery Device Oxygen Flow Rate Vent Mode Vent Rate Mechanical Rate PEEP Pressure Support Vent Sodium Potassium Chloride Carbon Dioxide Anion Gap BUN Creatinine Creat Clearance w eGFR Random Glucose Hemoglobin A1c % Calcium Total Bilirubin AST ALT Alkaline Phosphatase Creatine Kinase Creatine Kinase Index CK-MB (CK-2) Troponin I B-Natriuretic Peptide Total Protein Albumin TSH 07/20/17 07/20/17 07/20/17 11:30 11:30 14:05 WBC RBC Hgb Hct MCV MCH MCHC RDW Plt Count MPV Neutrophils % Lymphocytes % Monocytes % Eosinophils % Basophils % PT with INR INR PTT (Actin FS) Puncture Site Left radial ABG pH 7.30 L ABG pCO2 at Pt Temp 34.1 L ABG pO2 at Pt Temp 129.0 H ABG HCO3 16.1 L ABG O2 Sat (Measured) 97.6 ABG O2 Content 19.2 ABG Base Excess -9.1 L Terry Test Positive O2 Delivery Device Bipap Oxygen Flow Rate 100% Vent Mode S/t Vent Rate 14 Mechanical Rate Bipap PEEP 0.0 Pressure Support Vent 12/5 Sodium 130 L Potassium 4.5 Chloride 99 Carbon Dioxide 16 L Anion Gap 15 BUN 9 Creatinine 0.7 Creat Clearance w eGFR > 60 Random Glucose 181 H Hemoglobin A1c % 5.1 Calcium 9.1 Total Bilirubin 0.8 AST 25 ALT 33 Alkaline Phosphatase 122 H Creatine Kinase 176 Creatine Kinase Index 3.2 CK-MB (CK-2) 5.650 H Troponin I 0.05 B-Natriuretic Peptide Total Protein 7.1 Albumin 3.6 TSH 1.46 07/20/17 16:40 WBC RBC Hgb Hct MCV MCH MCHC RDW Plt Count MPV Neutrophils % Lymphocytes % Monocytes % Eosinophils % Basophils % PT with INR INR PTT (Actin FS) Puncture Site ABG pH ABG pCO2 at Pt Temp ABG pO2 at Pt Temp ABG HCO3 ABG O2 Sat (Measured) ABG O2 Content ABG Base Excess Terry Test O2 Delivery Device Oxygen Flow Rate Vent Mode Vent Rate Mechanical Rate PEEP Pressure Support Vent Sodium Potassium Chloride Carbon Dioxide Anion Gap BUN Creatinine Creat Clearance w eGFR Random Glucose Hemoglobin A1c % Calcium Total Bilirubin AST ALT Alkaline Phosphatase Creatine Kinase 226 H Creatine Kinase Index CK-MB (CK-2) Troponin I 0.06 H B-Natriuretic Peptide 45201.06 H Total Protein Albumin TSH Active Medications Generic Name Dose Route Start Last Admin Trade Name Freq PRN Reason Stop Dose Admin Heparin Sodium (Porcine) 1,000 unit 07/20/17 13:39 Heparin - IVPUSH PRN PRN Heparin Heparin Sodium/Dextrose 500 mls @ 20 mls/hr 07/20/17 13:45 07/20/17 14:13 Heparin Infusion - IVPB 20 mls/hr TITR MISAEL Administration Protocol 1,000 UNITS/HR Micro: Blood, urine, [employer] cultures pending ECHO (07/20) - Left ventricular hypokinesis. Severe left atrial dilatation. Calculated EF 21%. Moderate MR. Moderate R atrial dilatation. CXR (07/20) - Imaging reveals a large heart, bilateral effusions and a mixture both congestive and possibly basilar infiltrative findings. The bones and soft tissues are intact. Follow-up recommended. EKG (07/20) - NSR w/ LBBB and PVCs. Prior EKG notable for new onset paroxysmal aFib per prior notes. ASSESSMENT/PLAN: 61 yo F w/ no significant PMH, who presented to ED from PCP Dr. Domínguez's office with progressive SOB, dyspnea on exertion of one week w/ new onset aFib in the setting of suspected URI. Physical exam notable for afebrile status, RRR, diffuse BL rhonchi, no JVD or peripheral edema. Labs notable for elevated BNP ~ 68265, trops of 0.05 -> 0.06, borderline elevated WBC (11). Echo w/ severe L ventricular hypokinesis and L atrial dilatation, w/ calculated EF of 21%. CXR w / BL congestion vs. infiltrative process. EKG on admission notable for NSR w/ LBBB and PVCs. NYHA class III-IV. Pt likely w/ acute CHF of unknown etiology, possibly viral given recent UTI. Will continue empiric abx coverage, diuresis. Will require thorough cardiac work-up. Cardiology, Pulm, ID all following. Consider transfer to [facility] for [facility] tomorrow. #Neuro - Monitor MS - Pain control w/ Morphine PRN #Cardiac Acute on Chronic CHF Exacerbation BNP 14,000, Echo w/ LV hypokinesis and EF of 21% - Daily weights - Hold all BB, CCBs given acute CHF - Repeat EKG this PM - Serial cardiac enzymes - Lipid panel, A1C, TSH - BNP 14,000. F/u repeat BNP in PM - Start dobutamine gtt if hypotensive w/ MAP <65 - Cardiac MRI for cardiomyopathy work-up - f/u EKG records from Dr. Domínguez office to confirm suspected aFib. - Consider transfer to [facility] tomorrow if stable for RHC/C #Pulm -Bipap PRN. Titrate to >94% #ID URI w/ possible PNA Afebrile, borderline WBC count 11K - Trend lactate - Monitor fever, WBC curve - Vanc/azithro/zosyn/tamiflu for empiric coverage per ID - f/u all cultures - ID recs appreciated #Renal -Strict Is&Os -Daily BMPs, monitor lytes - f/u PM potassium #Heme - Heparin gtt - Received ASA in ED - Trend H/H. Transfuse at <7 - Lovenox BID if aFib confirmed #GI - Cardiac diet - PPI for GI ppx #FEN -Fluids: PO fluids <2L -Electrolytes: Daily BMPs, Trend BUN/Cr -Nutrition: Cardiac diet, Na restriction <2g #PPX -Heparin gtt for DVT ppx -PPI for GI ppx #Dispo - Dispo to ICU for further monitoring/management Facundo Ambrosio, PGY1 Plan to be discussed with attending, Dr. Kilgore. Dispo: We will continue to follow the patient. Thank you for this consultative opportunity. Visit type - Emergency Visit Emergency Visit: No - New Patient This patient is new to me today: Yes Date on this admission: 07/20/17 - Critical Care Critical Care patient: Yes Total Critical Care Time (in minutes): 45 Critical Care Statement: The care of this patient involved high complexity decision making to prevent further life threatening deterioration of the patient 's condition and/or to evaluate & treat vital organ system(s) failure or risk of failure.
--- NOTE | 2017-07-20 18:04 | PN ---
Teaching Attending Note Name of Resident: Zina Garner ATTENDING PHYSICIAN STATEMENT I saw and evaluated the patient. I reviewed the resident's note and discussed the case with the resident. I agree with the resident's findings and plan as documented. 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 Presently in ICU on bipap. CXR bilateral infiltrates OBJECTIVE: Awake, responsive. Dyspneic on bipap. Afebrile cor S1S2 Decreased BS bilaterally Abdo soft, non tender No edema Distal UE and LE cold and clammy ASSESSMENT AND PLAN: CHF v. Pneumonia DDx Viral pneumonitis, Post viral ( ? Staph pneumonia ), Community acquired/ atypical , PCP Await cultures Legionella/ pneumococcal ag HIV test Empiric zosyn/ zithromax/ Vancomycin/ Tamiflu Discussed with Cardiology Critical care time spent 35min
[2017-07-20] MEDS: VANCOMYCIN 1,000 MG in DEXTROSE 5%-WATER - 250 ML IVPB SCH (20:00)
--- NOTE | 2017-07-20 21:16 | CONSULT ---
Consult Consult Specialty:: Pulmonary Critical Care Reason for Consultation:: Heart failure, SOB - History of Present Illness Chief Complaint: SOB History of Present Illness: Pt is a 61 yo female with no significant past medical history who presented to her PMDs office with URI symptoms that she has been experiencing for the past 2 weeks. 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 Didn t have a flu shot this year. At the office was found to be rapid afib and was transferred to ED for further management. In ER was afebrile, with irregular HR of 120, BP 105/95, SpO2 92% on 2L NC. Admission labs notable for WBC 11, Na 130 , Troponin 0.06, BNP 61898, Lactate 5.4. She was given a dose of Cardizem, Lopressor and was started on heparin drip. CXR with bilateral infiltrates, c/f PNA vs fluid overload. She was started on Azithro and given a dose of lasix. She was subsequently placed on BiPAP (ABG on 100% BiPAP 7.3/34/129) and transferred to ICU for further management. In ICU EKG with NSR with LBBB. TTE with EF of 20%. Was diuresed further and broad spectrum abx added (Vanco/Zosyn) . Current Medications Furosemide (Lasix Injection -) 40 mg IVPUSH ONCE ONE Stop: 07/20/17 23:01 Heparin Sodium (Porcine) (Heparin -) 1,000 unit IVPUSH PRN PRN PRN Reason: Heparin Heparin Sodium/Dextrose (Heparin Infusion -) 500 mls @ 20 mls/hr IVPB TITR MISAEL ; 1,000 UNITS/HR PRN Reason: Protocol Last Admin: 07/20/17 14:13 Dose: 20 mls/hr Azithromycin 500 mg/ Dextrose 250 mls @ 250 mls/hr IVPB DAILY MISAEL Piperacillin Sod/Tazobactam Sod (Zosyn 3.375gm Ivpb (Pre-Docked)) 50 mls @ 100 mls/hr IVPB Q8H-IV MISAEL PRN Reason: Protocol Last Admin: 07/20/17 16:45 Dose: 100 mls/hr Vancomycin HCl 1,000 mg/ (Dextrose) 250 mls @ 150 mls/hr IVPB BID@0700,1900 MISAEL Oseltamivir Phosphate (Tamiflu -) 75 mg PO BID MISAEL Stop: 07/25/17 21:59 - Past Medical History 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 Cardio/Vascular: Yes: AFIB Pulmonary: Yes: Pneumonia Gastrointestinal: No: Ascites Hepatobiliary: No: Cirrhosis Renal/: No: Renal Failure ...: No Psych: No: Addictions - Past Surgical History Past Surgical History: Yes: None - Alcohol/Substance Use Hx Alcohol Use: No History of Substance Use: reports: None - Smoking History Smoking history: Never smoked Have you smoked in the past 12 months: No - Social History ADL: Independent History of Recent Travel: No Home Medications - Allergies Allergies/Adverse Reactions: Allergies Allergy/AdvReac Type Severity Reaction Status Date / Time No Known Allergies Allergy Verified 07/20/17 11:04 - Home Medications Home Medications: Ambulatory Orders NK [No Known Home Medication] 07/20/17 Physical Exam Vital Signs: Vital Signs Temperature 97.2 F L 07/20/17 15:15 Pulse Rate 92 H 07/20/17 15:15 Respiratory Rate 28 H 07/20/17 15:15 Blood Pressure 134/88 07/20/17 15:15 O2 Sat by Pulse Oximetry (%) 97 07/20/17 17:39 Eyes: Yes: WNL Cardiovascular: Yes: Tachycardia, S1, S2. No: Murmur Respiratory: Yes: On BiPap, Other (CTA anteriorly, diminished at bases. Dry cough) Gastrointestinal: Yes: WNL, Normal Bowel Sounds, Soft Extremities: Yes: Cool, Other (LE cool to touch, no edema) Edema: No Neurological: Yes: Alert, Oriented Labs: CBC, BMP 07/20/17 11:30 07/20/17 11:30 ABG Results ABG pH 7.30 (7.35-7.45) L 07/20/17 14:05 ABG pCO2 at Pt Temp 34.1 mmHg (35-45) L 07/20/17 14:05 ABG pO2 at Pt Temp 129.0 mmHg (80-100) H 07/20/17 14:05 ABG HCO3 16.1 meq/L (22-26) L 07/20/17 14:05 ABG O2 Sat (Measured) 97.6 % (90-98.9) 07/20/17 14:05 ABG O2 Content 19.2 % vol (15-22) 07/20/17 14:05 ABG Base Excess -9.1 meq/l (-2-2) L 07/20/17 14:05 Imaging - Results Chest X-ray: Image Reviewed Problem List - Problems (1) Atrial fibrillation Code(s): I48.91 - UNSPECIFIED ATRIAL FIBRILLATION (2) Bilateral pneumonia Code(s): J18.9 - PNEUMONIA, UNSPECIFIED ORGANISM (3) Respiratory failure Code(s): J96.90 - RESPIRATORY FAILURE, UNSP, UNSP W HYPOXIA OR HYPERCAPNIA Assessment/Plan ASSESSMENT: Respiratory failure likely in the setting of fluid overload vs bacterial or viral PNA Acute cardiomyopathy of unclear etiology Atrial fibrillation (though now appers in NSR ) Troponin leak likely 2/2 demand ischemia Hyponatremia Lactic acidosis PLAN: -cardiology following -cards w/u as per recnadine -nithine for net out -consider d/c heparin drip given no afib here -add dobutamine if hypotensive for inotropy assisted diuresis -hold off on CCB and/or BB -trend BNP and troponin -trend lactate -cont BiPAP -cont broad spectrum abx (azithro/Vanco/Zosyn) -cont tamiflu -f/u cultures (urine antigens, sputum, blood) -replete electrolytes as necessary -NPO for now given tenuous resp status -Hep for DVT ppx, no indication for GI ppx at this time MONICA Loja Critical Care Time: 35 min
[2017-07-20] MEDS: OSELTAMIVIR PHOSPHATE 75 MG CAPSULE PO SCH (22:00)
[2017-07-20 22:08] LABS: ANION GAP 14 (8-16); CALCIUM 8.5 mg/dL (8.5-10.1); CO2 22 mmol/L (21-32); CREATININE 0.7 mg/dL (0.55-1.02); GLUCOSE,RANDOM 237 mg/dL (74-106)
[2017-07-20 22:13] LABS: TROPONIN I 0.08 ng/ml (0.00-0.05)
[2017-07-20 23:00] LABS: HIV 1 & 2 AB NEGATIVE; HIV 1 AGp24 NEGATIVE
[2017-07-21] MEDS: PIPERACILLIN/TAZOB 3.375 GM 50 ML IVPB SCH (01:30)
[2017-07-21 06:04] LABS: BASOPHIL 0.1 % (0-2.0); MCH 31.8 pg (25.7-33.7); MEAN CELL VOLUME 90.8 fl (80-96); MEAN PLT VOLUME 9.4 fl (7.5-11.1); NEUTROPHILS 81.3 % (42.8-82.8); PLATELET COUNT 274 K/MM3 (134-434); RDW 13.5 % (11.6-15.6); WHITE BLOOD COUNT 12.5 K/mm3 (4.0-10.0)
[2017-07-21] MEDS: VANCOMYCIN 1,000 MG in DEXTROSE 5%-WATER - 250 ML IVPB SCH (06:18)
[2017-07-21 06:29] LABS: ALBUMIN 3.1 g/dl (3.4-5.0); ANION GAP 12 (8-16); CHOLESTEROL 191 mg/dL (50-200); CO2 29 mmol/L (21-32); GLUCOSE,RANDOM 160 mg/dL (74-106); SGPT/ALT 30 U/L (12-78)
[2017-07-21 06:30] LABS: MAGNESIUM 1.8 mg/dL (1.8-2.4); PHOSPHOROUS 4.8 mg/dL (2.5-4.9)
[2017-07-21 06:31] LABS: ALK PHOS 102 U/L (45-117); BILIRUBIN,TOTAL 0.8 mg/dL (0.2-1.0); CREATININE 0.7 mg/dL (0.55-1.02); SGOT/AST 23 U/L (15-37); TOT PROT 6.4 g/dl (6.4-8.2)
[2017-07-21 06:33] LABS: TROPONIN I 0.08 ng/ml (0.00-0.05)
[2017-07-21] MEDS ORDERED: FUROSEMIDE 40 MG/4 ML INJECTABLE VIAL ONE (07:42)
[2017-07-21] MEDS ORDERED: FUROSEMIDE 40 MG/4 ML INJECTABLE VIAL IVPB ONE (07:54)
--- NOTE | 2017-07-21 07:55 | PN ---
Physical Exam: INFECTIOUS DISEASE SUBJECTIVE: Patient is much improved today. Still on BiPAP but states that her SOB and malaise has improved. She slept well, denies fevers/chills/CP/nausea/ vomitting. VSS overnight. OBJECTIVE: Vital Signs Period Temp Pulse Resp BP Sys/Olivarez Pulse Ox Last 24 Hr 97.2 F-97.9 F 76-118 14-35 97-151/63-110 92-100 GEN: AAOx3, on BiPAP, non-labored breathing HEENT: PERRLA, EOMi, no visible JVD. CV: S1, S2, regular, regular rhythm LUNG: Bibasilar crackles, otherwise clear to auscultation posteriorly ABD: Soft, NT, ND MSK: No edema, extremities have warmed Active Medications Generic Name Dose Route Start Last Admin Trade Name Freq PRN Reason Stop Dose Admin Heparin Sodium (Porcine) 1,000 unit 07/20/17 13:39 Heparin - IVPUSH PRN PRN Heparin Heparin Sodium/Dextrose 500 mls @ 20 mls/hr 07/20/17 13:45 07/20/17 14:13 Heparin Infusion - IVPB 20 mls/hr TITR MISAEL Administration Protocol 1,000 UNITS/HR Azithromycin 500 mg/ Dextrose 250 mls @ 250 mls/hr 07/21/17 10:00 IVPB DAILY MISAEL Piperacillin Sod/Tazobactam Sod 50 mls @ 100 mls/hr 07/20/17 18:15 07/21/17 01: 30 Zosyn 3.375gm Ivpb (Pre-Docked) IVPB 100 mls/hr Q8H-IV MISAEL Administration Protocol Vancomycin HCl 1,000 mg/ 250 mls @ 150 mls/hr 07/20/17 19:00 07/21/17 06:18 Dextrose IVPB 150 mls/hr BID@0700,1900 MISAEL Administration Oseltamivir Phosphate 75 mg 07/20/17 22:00 07/20/17 22:00 Tamiflu - PO 07/25/17 21:59 75 mg BID MISAEL Administration Microbiology 07/20/17 15:05 Nasopharyngeal Swab Influenza Types A,B Antigen (YOHANA) - Final --> NEGATIVE Laboratory Tests 07/20/17 07/21/17 07/21/17 21:15 05:00 05:00 WBC 12.5 H Lactic Acid 2.9 H* Troponin I 0.08 H New CXR (read by me): Worsening bilateral effusions and bilateral congestive opacifications Echo: 21% EF, reduced LVSF, severe hypokinesis ASSESSMENT/PLAN: Pt is a 61yo F with no PMHx on no home medications who presented to the ER from Dr. Domínguez's office with complaints of SOB and cough. # Acute CHF Exacerbation - from acute cardiomyopathy, unclear etiology, ?viral, possible underlying B/L PNA - New CXR shows worsening congestion, though patient appears much improved - Plan to wean off BiPAP and transfer to tertiary care - Can d/c Zosyn, Vanc, Tamiflu. Switch to IV Levo 500mg once --> PO daily to cover strep pneumo/atypicals - F/u BCx, UCx, UAg - Continue diuresis - HIV negative Discussed w/ Dr Huston. Zina Garner MD - PGY1 Infectious Disease Critical care time 35min
--- NOTE | 2017-07-21 08:47 | PN ---
Teaching Attending Note Name of Resident: Zina Garner ATTENDING PHYSICIAN STATEMENT I saw and evaluated the patient. I reviewed the resident's note and discussed the case with the resident. I agree with the resident's findings and plan as documented. SUBJECTIVE:Dramatic improvement since admission No fever chills OBJECTIVE: ASSESSMENT AND PLAN: Selected Entries 07/21/17 07/21/17 00:00 08:00 Temperature 97.9 F Pulse Rate 92 H Respiratory 15 Rate Blood Pressure 105/61 Lung Few basilar rales Cor S1 S2 RR Abd Soft nontender Extr No CCE Laboratory Tests 07/20/17 07/20/17 07/21/17 21:15 21:15 05:00 WBC 12.5 H Hgb 14.0 Hct 40.0 Plt Count 274 BUN Creatinine Lactic Acid 2.9 H* Total Bilirubin AST ALT Alkaline Phosphatase HIV 1&2 Antibody Screen Negative HIV P24 Antigen Negative 07/21/17 05:00 WBC Hgb Hct Plt Count BUN 9 Creatinine 0.7 Lactic Acid Total Bilirubin 0.8 AST 23 ALT 30 Alkaline Phosphatase 102 HIV 1&2 Antibody Screen HIV P24 Antigen Microbiology 07/20/17 15:05 Nasopharyngeal Swab Influenza Types A,B Antigen (YOHANA) - Final 07/20/17 15:05 Nasopharyngeal Swab - Final Assessment Congestive heart failure Recent sounds like viral illness Blood cultures negative Plan Stop all current antibiotics IV Levofloxacin 500mg today then po daily Betzaida STAFFORD Critical care time spent today 38 minutes Betzaida STAFFORD
[2017-07-21] MEDS ORDERED: LEVOFLOXACIN 500 MG IVPB 100 ML IVPB ONE (08:56)
--- NOTE | 2017-07-21 09:02 | PN ---
Physical Exam: 24H Events: yesterday: -Echo: 21% EF, reduced LVSF, severe hypokinesis -ID - d/c current IV levo 500mg today --> then PO daily ON: tolerated Bipap AM: on Venti 50% --> 4L NC, satting well, Cardiology initiating transfer to [facility] for cardiac cath SUBJECTIVE: Patient seen and examined in ICU. Patient feels better. No chest pain, SOB, continues to have some productive cough. No fever, chills, n/v, or abdominal pain. OBJECTIVE: Vital Signs Period Temp Pulse Resp BP Sys/Olivarez Pulse Ox Last 24 Hr 97.2 F-97.9 F 76-118 14-35 97-151/61-110 92-100 Intake & Output 07/18/17 07/19/17 07/20/17 07/21/17 23:59 23:59 23:59 23:59 Intake Total 110 790 Output Total 1000 600 Balance -890 190 Weight 72.575 kg GEN: AAOx3, nad, on venti mask, completing full sentences w/o dyspnea HEENT: conjunctiva clear, sclera anicteric CV: tachycardia, regular rhythm, normal S1/S2 LUNG: Bibasilar crackles, no wheezing ABD: soft, ntnd LOWER EXT: wwp, no edema CBC, BMP 07/21/17 05:00 07/21/17 05:00 Hepatic Panel Total Bilirubin 0.8 mg/dL (0.2-1.0) 07/21/17 05:00 AST 23 U/L (15-37) 07/21/17 05:00 ALT 30 U/L (12-78) 07/21/17 05:00 Alkaline Phosphatase 102 U/L (45-117) 07/21/17 05:00 Albumin 3.1 g/dl (3.4-5.0) L 07/21/17 05:00 Ca - 8 Phos - 4.8 Mg - 1.8 ABG Results ABG pH 7.30 (7.35-7.45) L 07/20/17 14:05 ABG pCO2 at Pt Temp 34.1 mmHg (35-45) L 07/20/17 14:05 ABG pO2 at Pt Temp 129.0 mmHg (80-100) H 07/20/17 14:05 ABG HCO3 16.1 meq/L (22-26) L 07/20/17 14:05 ABG O2 Sat (Measured) 97.6 % (90-98.9) 07/20/17 14:05 ABG O2 Content 19.2 % vol (15-22) 07/20/17 14:05 ABG Base Excess -9.1 meq/l (-2-2) L 07/20/17 14:05 Troponin, BNP 07/20/17 07/20/17 07/21/17 16:40 21:15 05:00 Troponin I 0.06 H 0.08 H 0.08 H B-Natriuretic Peptide 37782.06 H 90269.63 H Laboratory Tests 07/20/17 07/20/17 16:40 21:15 Lactic Acid 5.4 H* 2.9 H* Imaging: CXR 07/21/2017: cardiomegaly, b/l pulmonary vascular congestion, b/l pleural effusion Echo: 21% EF, reduced LVSF, severe hypokinesis Active Medications Heparin Sodium (Porcine) (Heparin -) 1,000 unit IVPUSH PRN PRN PRN Reason: Heparin Heparin Sodium/Dextrose (Heparin Infusion -) 500 mls @ 20 mls/hr IVPB TITR MISAEL ; 1,000 UNITS/HR PRN Reason: Protocol Last Admin: 07/20/17 14:13 Dose: 20 mls/hr Azithromycin 500 mg/ Dextrose 250 mls @ 250 mls/hr IVPB DAILY MISAEL Piperacillin Sod/Tazobactam Sod (Zosyn 3.375gm Ivpb (Pre-Docked)) 50 mls @ 100 mls/hr IVPB Q8H-IV MISAEL PRN Reason: Protocol Last Admin: 07/21/17 01:30 Dose: 100 mls/hr Vancomycin HCl 1,000 mg/ (Dextrose) 250 mls @ 150 mls/hr IVPB BID@0700,1900 MISAEL Last Admin: 07/21/17 06:18 Dose: 150 mls/hr Oseltamivir Phosphate (Tamiflu -) 75 mg PO BID MISAEL Stop: 07/25/17 21:59 Last Admin: 07/20/17 22:00 Dose: 75 mg ASSESSMENT/PLAN: 61 yo F w/ no significant PMH, who presented to ED from PCP Dr. Domínguez's office with progressive SOB, RUIZ x 1week and EKG suggestive of possible new onset Afib in the setting of suspected URI. Echo w/ severe L ventricular hypokinesis and L atrial dilatation, w/ calculated EF of 21%. Pt likely w/ acute CHF of unknown etiology. CXR w/ BL congestion vs. infiltrative process. EKG on admission notable for NSR w/ LBBB and PVCs, and elevated troponins. Will be transferred to [facility] for cardiac cath per Cardiolgy. #Cardiac Acute on Chronic CHF Exacerbation +Tropinins, BNP 14,000, Echo w/ LV hypokinesis and EF of 21% -Daily weights -f/u lipid panel, A1C, TSH -Awaiting transfer to [facility] for cardiac cath -Diuresis with Lasix 40mg IV -On heparin gtt, consider d/c #Pulm -O2 therapy as needed to titrate SpaO2 >90% #ID URI w/ possible PNA Afebrile, borderline WBC count 11K, lactic acidosis resolving -ID consulted -Abx per ID -> switch to Levofloxacin 500mg IV today, and convert to PO tomorrow #Renal -Strict Is&Os -lasix daily #FEN -Fluids: PO fluids <2L -lytes wnl -Cardiac diet, Na restriction <2g #PPX -Heparin gtt for DVT ppx -PPI for GI ppx #Dispo - transfer to [facility] for cardiac cath FULL code d/w Dr. Jame Valentine MD PGY-1 Visit type - Emergency Visit Emergency Visit: No - New Patient This patient is new to me today: Yes Date on this admission: 07/21/17 - Critical Care Critical Care patient: Yes Total Critical Care Time (in minutes): 35 Critical Care Statement: The care of this patient involved high complexity decision making to prevent further life threatening deterioration of the patient 's condition and/or to evaluate & treat vital organ system(s) failure or risk of failure.
[2017-07-21] MEDS: OSELTAMIVIR PHOSPHATE 75 MG CAPSULE PO SCH (09:36)
[2017-07-21] MEDS ORDERED: AZITHROMYCIN IVPB 500 MG in DEXTROSE 5%-WATER - 250 ML IVPB SCH (10:00)
[2017-07-21] MEDS ORDERED: ENOXAPARIN NA (PORCINE) 80 MG/0.8 ML DISP.SYRIN SQ SCH (10:00)
[2017-07-21] MEDS ORDERED: LEVOFLOXACIN 500 MG IVPB 100 ML IVPB SCH (10:00)
[2017-07-21 10:39] VITALS: TEMP 98.1
--- NOTE | 2017-07-21 11:07 | PN ---
Progress Note, Physician Chief Complaint: feels much better sitting up comfotable - Current Medication List Current Medications: Active Medications Heparin Sodium (Porcine) (Heparin -) 1,000 unit IVPUSH PRN PRN PRN Reason: Heparin Heparin Sodium/Dextrose (Heparin Infusion -) 500 mls @ 20 mls/hr IVPB TITR MISAEL ; 1,000 UNITS/HR PRN Reason: Protocol Last Titration: 07/21/17 07:00 Dose: 900 units/hr Levofloxacin (Levaquin 500 Mg Premixed Ivpb -) 100 mls @ 100 mls/hr IVPB DAILY MISAEL Last Admin: 07/21/17 09:41 Dose: 100 mls/hr Oseltamivir Phosphate (Tamiflu -) 75 mg PO BID MISAEL Stop: 07/25/17 21:59 Last Admin: 07/21/17 09:36 Dose: 75 mg - Objective Vital Signs: Vital Signs Temperature 98.1 F 07/21/17 10:00 Pulse Rate 105 H 07/21/17 10:08 Respiratory Rate 20 07/21/17 10:00 Blood Pressure 101/58 07/21/17 10:00 O2 Sat by Pulse Oximetry (%) 97 07/21/17 10:08 Constitutional: Yes: Calm Eyes: Yes: WNL HENT: Yes: WNL Neck: Yes: WNL Cardiovascular: Yes: Regular Rate and Rhythm Respiratory: Yes: Other (less sob) Gastrointestinal: Yes: WNL ...Rectal Exam: Yes: Deferred Genitourinary: Yes: WNL Breast(s): Yes: WNL Musculoskeletal: Yes: WNL Extremities: Yes: WNL Edema: LUE: 1+, RUE: 1+, LLE: 1+, RLE: 1+ Peripheral Pulses WNL: Yes Integumentary: Yes: WNL Neurological: Yes: WNL ...Motor Strength: WNL (less anxiety) Psychiatric: Yes: WNL Labs: CBC, BMP 07/21/17 05:00 07/21/17 05:00 INR, PTT INR 1.18 (0.82-1.09) H 07/20/17 11:30 Problem List - Problems (1) Anxiety Code(s): F41.9 - ANXIETY DISORDER, UNSPECIFIED Assessment/Plan card f/u ? yany card cath diuretics wacth bp fallimng na better sr now good candidete for ? entresto chk labs in am
--- NOTE | 2017-07-21 11:52 | EKG ---
Test Reason : Blood Pressure : / mmHG Vent. Rate : 102 BPM Atrial Rate : 102 BPM P-R Int : 150 ms QRS Dur : 148 ms QT Int : 420 ms P-R-T Axes : 035 -37 090 degrees QTc Int : 547 ms SINUS TACHYCARDIA WITH OCCASIONAL PREMATURE VENTRICULAR COMPLEXES POSSIBLE LEFT ATRIAL ENLARGEMENT LEFT AXIS DEVIATION LEFT BUNDLE BRANCH BLOCK ABNORMAL ECG WHEN COMPARED WITH ECG OF 20-JUL-2017 12:02, PREVIOUS ECG HAS UNDETERMINED RHYTHM, NEEDS REVIEW Confirmed by MARLENY STAFFORD, RAMANDEEP ([id number]) on 07/21/2017 11:51:57 AM Referred By: GERSON RODRIGUEZ Confirmed By:RAMANDEEP FARMER MD
--- NOTE | 2017-07-21 11:58 | EKG ---
Test Reason : Blood Pressure : / mmHG Vent. Rate : 105 BPM Atrial Rate : 107 BPM P-R Int : 148 ms QRS Dur : 144 ms QT Int : 406 ms P-R-T Axes : 067 -31 074 degrees QTc Int : 536 ms POOR DATA QUALITY, INTERPRETATION MAY BE ADVERSELY AFFECTED UNDETERMINED RHYTHM LEFT AXIS DEVIATION LEFT BUNDLE BRANCH BLOCK ABNORMAL ECG NO PREVIOUS ECGS AVAILABLE Confirmed by MARLENY STAFFORD, RAMANDEEP ([id number]) on 07/21/2017 11:58:26 AM Referred By: Confirmed By:RAMANDEEP FARMER MD
--- NOTE | 2017-07-21 12:41 | PN ---
Progress Note, Physician Chief Complaint: Diuresing well Dyspnea improving but still on bipap Tele: sinus with pvc's History of Present Illness: 61 year old female with no pmhx but did not see doctors who went to Dr. Domínguez' s office for few days of sob, cough, and subjective fevers which have been worsening to point sob with minimal exertion. No chest pain. Report as per chart was in afib with RVR and b/l infiltrates in pmd's office. - Current Medication List Current Medications: Active Medications Furosemide (Lasix -) 20 mg PO BID@0600,1400 MISAEL Heparin Sodium (Porcine) (Heparin -) 1,000 unit IVPUSH PRN PRN PRN Reason: Heparin Heparin Sodium/Dextrose (Heparin Infusion -) 500 mls @ 20 mls/hr IVPB TITR MISAEL ; 1,000 UNITS/HR PRN Reason: Protocol Last Titration: 07/21/17 07:00 Dose: 900 units/hr Levofloxacin (Levaquin 500 Mg Premixed Ivpb -) 100 mls @ 100 mls/hr IVPB DAILY [facility] Last Admin: 07/21/17 09:41 Dose: 100 mls/hr Oseltamivir Phosphate (Tamiflu -) 75 mg PO BID [facility] Stop: 07/25/17 21:59 Last Admin: 07/21/17 09:36 Dose: 75 mg - Objective Vital Signs: Vital Signs Temperature 98.1 F 07/21/17 10:00 Pulse Rate 105 H 07/21/17 10:08 Respiratory Rate 20 07/21/17 10:00 Blood Pressure 101/58 07/21/17 10:00 O2 Sat by Pulse Oximetry (%) 97 07/21/17 10:08 Constitutional: Yes: Mild Distress Cardiovascular: Yes: Tachycardia, JVD, S1, S2 Respiratory: Yes: Diminished (bases) Gastrointestinal: Yes: Normal Bowel Sounds, Soft Edema: No Labs: CBC, BMP 07/21/17 05:00 07/21/17 05:00 INR, PTT INR 1.18 (0.82-1.09) H 07/20/17 11:30 Assessment/Plan 61 year old female with no pmhx but did not see doctors who went to Dr. Domínguez' s office for few days of sob, cough, and subjective fevers which have been worsening to point sob with minimal exertion. No chest pain. Report as per chart was in afib with RVR and b/l infiltrates in pmd's office. 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 Unclear etiology. Possibly viral or infectious. LV is dilated already so possibly acute on an underlying chronic condition. EKG here sinus with LBBB and pvc's. No afib in ICU. Diurese patient furosemide 40mg IV q12. Monitor I/O's and lytes, Keep close observation of electrolytes given pvc's and ensure K over 4 and Mg over 2. If becomes hypotensive would consider ionotropic support such as dobutamine. If bp holds, will consider low dose captopril. -On lovenox for AC for report of afib but would get records from pmd's office to see if patient really has afib as here not in afib. -Would f/u with ID for any recommendations regarding possible viral etiology or broad abx for coverage for now. F/u cultures. -Bipap as needed for now. DO NOT START THIS PATIENT ON ENTRESTO. THIS IS NOT INDICATED AT THIS TIME. THE INFORMATION SECURITY ASSOCIATE CARING FOR THIS PATIENT PLEASE CALL ME BEFORE YOU WOULD ORDER THIS MEDICATION. -Plan to transfer to [facility].
--- NOTE | 2017-07-21 12:50 | PN ---
Teaching Attending Note Name of Resident: Luisa Valentine ATTENDING PHYSICIAN STATEMENT I saw and evaluated the patient. I reviewed the resident's note and discussed the case with the resident. I agree with the resident's findings and plan as documented. SUBJECTIVE: Pt seen and examined in the ICU. In sinus rhythm but tachy. Off BiPAP, saturating well. Breathing better, denies chest pain. Mild cough. No fevers or chills. OBJECTIVE: Last Vital Signs Temp Pulse Resp BP Pulse Ox 98.1 F 105 H 20 101/58 97 07/21/17 10:00 07/21/17 10:08 07/21/17 10:00 07/21/17 10:00 07/21/17 10:08 Intake & Output 07/18/17 07/19/17 07/20/17 07/21/17 23:59 23:59 23:59 23:59 Intake Total 110 790 Output Total 1000 600 Balance -890 190 Weight 160 lb Gen: mildly tachypneic at rest Heart: tachycardic, regular Lung: decreased breath sounds at the bases Abd: soft, nontender Ext: no edema CBC, BMP 07/21/17 05:00 07/21/17 05:00 Active Medications Furosemide (Lasix -) 20 mg PO BID@0600,1400 MISAEL Heparin Sodium (Porcine) (Heparin -) 1,000 unit IVPUSH PRN PRN PRN Reason: Heparin Heparin Sodium/Dextrose (Heparin Infusion -) 500 mls @ 20 mls/hr IVPB TITR MISAEL ; 1,000 UNITS/HR PRN Reason: Protocol Last Titration: 07/21/17 07:00 Dose: 900 units/hr Levofloxacin (Levaquin 500 Mg Premixed Ivpb -) 100 mls @ 100 mls/hr IVPB DAILY MISAEL Last Admin: 07/21/17 09:41 Dose: 100 mls/hr Oseltamivir Phosphate (Tamiflu -) 75 mg PO BID MISAEL Stop: 07/25/17 21:59 Last Admin: 07/21/17 09:36 Dose: 75 mg ASSESSMENT AND PLAN: Acute Hypoxic Respiratory Failure Acute on Likely Chronic Systolic Heart Failure Acute Pulmonary Edema r/o Atrial Fibrillation +Troponins Hyponatremia Lactic Acidosis resolving - continue lasix - monitor urine output, creatinine - anticoagulation per cardiology, consider d/c as pt in sinus rhythm - rate control - on empiric antibiotics - monitor CXR with diuresis - cardiology considering cardiac catheterization - BiPAP as needed to assist in work of breathing - taper fiO2 to keep SpO2 >90% critical care time spent in reviewing chart, evaluating patient and formulating plan 35 min
[2017-07-21 13:15] VITALS: BP 102/56; PULSE 102
[2017-07-21] MEDS ORDERED: FUROSEMIDE 20 MG TABLET (FP) PO SCH (14:00)
[2017-07-23 08:07] LABS: QUANT MITOGEN VALUE 0.14 IU/mL (.); QUANT NIL VALUE 0.02 IU/mL (.); QUANT TB AG VALUE 0.02 IU/mL (.); QUANTIFERON GOLD Indeterminate (Negative)
--- NOTE | 2017-07-26 07:21 | EKG ---
Test Reason : Blood Pressure : / mmHG Vent. Rate : 115 BPM Atrial Rate : 111 BPM P-R Int : 158 ms QRS Dur : 138 ms QT Int : 374 ms P-R-T Axes : 018 -35 092 degrees QTc Int : 517 ms UNDETERMINED RHYTHM BASELINE ARTIFACT PREMATURE VENTRICULAR COMPLEXES LEFT AXIS DEVIATION LEFT BUNDLE BRANCH BLOCK ABNORMAL ECG NO PREVIOUS ECGS AVAILABLE Confirmed by SHAWANDA STAFFORD, KERA ([id number]) on 07/26/2017 7:21:45 AM Referred By: Confirmed By:KERA MAYBERRY MD
== END 2017-07-21 12:40 | disposition short-term general hospital (02) | DRG 291 ==
LOC: JER 10:58 → JERBED 11:28 → JICU 15:59
PROVIDERS: ADMIT Family Medicine; ATTEND Family Medicine
PROC: 5A09457 Assistance with Respiratory Ventilation, 24-96 Consecutive Hours, Continuous Positive Airway Pressure (ICD-10-PCS; principal; 2017-07-20)
DX: I50.23 Acute on chronic systolic (congestive) heart failure (principal); J96.01 Acute respiratory failure with hypoxia; J18.9 Pneumonia, unspecified organism; E87.1 Hypo-osmolality and hyponatremia; E87.2 Acidosis; I42.9 Cardiomyopathy, unspecified; I48.91 Unspecified atrial fibrillation; F41.9 Anxiety disorder, unspecified; J06.9 Acute upper respiratory infection, unspecified
CPT/HCPCS: 36415; 36600; 71010-TC; 80048; 80053; 80061; 82550; 82553; 82803; 83036; 83605; 83721; 83735; 83880; 84100; 84443; 84484; 85025; 85610; 85730; 86480; 87040; 87086; 87389; 87804; 87899; 93005; 93010; 93306-TC; 94660; 99285-25; J1644